=== PATIENT | male | born 1950 | race Caucasian/White ===

== ENCOUNTER → 2017-06-13 13:46 | Outpatient (CLI) | payer MEDICARE, OTHER, SELFPAY ==
[2017-06-13 16:33] LABS: Free T3 2.7 pg/mL (2.18-3.98); T4 Free Direct 1.22 ng/dL (0.76-1.46); Thyroid Stim Hormone (TSH) 4.68 uIU/mL (0.358-3.74)
== END ==
PROVIDERS: Family Provider Family Medicine; PCP Family Medicine; Visit Provider Nurse Practitioner
DX: E05.90 Thyrotoxicosis, unspecified without thyrotoxic crisis or storm (principal)
CPT/HCPCS: 84439; 84443; 84481

== ENCOUNTER → 2017-09-06 09:36 | Outpatient (CLI) | payer MEDICARE, OTHER, SELFPAY ==
[2017-09-06 12:57] LABS: Free T3 2.6 pg/mL (2.18-3.98); T4 Free Direct 1.18 ng/dL (0.76-1.46); Thyroid Stim Hormone (TSH) 4.63 uIU/mL (0.358-3.74)
== END ==
PROVIDERS: Family Provider Family Medicine; PCP Family Medicine; Visit Provider Nurse Practitioner
DX: E03.9 Hypothyroidism, unspecified (principal)
CPT/HCPCS: 36415; 84439; 84443; 84481

== ENCOUNTER → 2018-01-24 09:14 | Outpatient (CLI) | payer MEDICARE, OTHER, SELFPAY ==
[2018-01-24 10:58] LABS: Free T3 2.3 pg/mL (2.18-3.98); T4 Free Direct 1.06 ng/dL (0.76-1.46)
== END ==
PROVIDERS: Family Provider Family Medicine; PCP Family Medicine; Referring Provider Nurse Practitioner; Visit Provider Nurse Practitioner
DX: E03.9 Hypothyroidism, unspecified (principal)
CPT/HCPCS: 36415; 84439; 84443; 84481

== ENCOUNTER → 2018-03-01 15:26 | Outpatient (CLI) | payer MEDICARE, OTHER, SELFPAY ==
[2018-03-01 13:58] VITALS: BMI 29.2
[2018-03-01 17:17] LABS: Free T3 2.6 pg/mL (2.18-3.98); T4 Free Direct 1.12 ng/dL (0.76-1.46)
--- OUTSIDE RECORDS SUMMARY | 2018-04-17 21:01 | XMS RPT_ITS ---
:1950 Author Organization [facility] Care Team Providers Name Role Phone Aneta Lau POSTMASTER-C Attending Unavailable Hoynes, Boaz Referring Unavailable Aneta Lau POSTMASTER-C Attending Unavailable Hoynes, Boaz Referring Unavailable Hoynes, Boaz Primary Care Unavailable Aneta Lau POSTMASTER-C Attending Unavailable Aneta Lau POSTMASTER-C Referring Unavailable [place]nes, Boaz Primary Care Unavailable Aneta Lau POSTMASTER-C Attending Unavailable Aneta Lau POSTMASTER-C Referring Unavailable [place]nes, Boaz Primary Care Unavailable Aneta Lau POSTMASTER-C Attending Unavailable Aneta Lau POSTMASTER-C Referring Unavailable [place]nes, Boaz Primary Care Unavailable Aneta Lau POSTMASTER-C Attending Unavailable Aneta Lau POSTMASTER-C Referring Unavailable [place]nes, Boaz Primary Care Unavailable PROBLEMS PROBLEMS DATE TYPE CONDITION / CODE ATTENDING STATUS SOURCE 03/17/2018 Unknown E03.9 - Aneta Lau Active [place] Hypothyroidism, POSTMASTER-C Community unspecified / Hospital E03.9(ICD-10) Repository 03/01/2018 Unknown E07.9 - Disorder Aneta Lau Active [place] of thyroid, POSTMASTER-C Community unspecified / Hospital E07.9(ICD-10) Repository PROCEDURES PROCEDURES No Procedure Records FoundRESULTS RESULTS OFFICE VISIT REPORT Observed: 03/02/2018 Status: F Source: [place] 8:24 AM [facility] REPOSITORY [facility] [address] [place] [address] OFFICE VISIT Date of Service: 03/01/18 MR#: [id number] Acct: [id number] Patient: JAYASHREE RAMSEY Rep #: [id number] : 1950 Provider: Aneta Lau NP Age/Sex: 67/M [place] [facility] [place] Signed Intake Vital Signs03/01/18 Height 5 ft 7 in 03/01/18 Weight: 186 lb 6 oz 03/01/18 Body Mass Index (BMI) 29.2 03/01/18 Blood Pressure 110/76 03/01/18 Blood Pressure Location Lt popliteal 03/01/18 Blood Pressure Position Sitting Intake Visit Reasons: Thyroid dysfunction Supervisor Properties Required: No Accompanied by: Family / Other Allergies No Known Allergies Allergy (Unverified 03/01/18 13:54) Medications amlodipine 5 mg tablet 5 mg PO QDAY 04/11/17 [History Confirmed 03/01/18] atorvastatin 10 mg tablet 10 mg PO QDAY 04/11/17 [History Confirmed 03/01/18] ascorbic acid (vitamin C) 1,000 mg tablet 1 g PO QDAY tab 04/19/17 [History Confirmed 03/01/18] calcium carbonate 500 mg calcium (1,250 mg) chewable tablet 500 mg PO QDAY tab 04/19/17 [History Confirmed 03/01/18] cholecalciferol (vitamin D3) 1,000 unit capsule 1,000 unit PO QDAY cap 04/19/17 [History Confirmed 03/01/18] ferrous sulfate 325 mg (65 mg iron) tablet PO 04/19/17 [History Confirmed 03/01/18] magnesium 30 mg tablet 30 mg PO QDAY 04/19/17 [History Confirmed 03/01/18] mecobalamin (vitamin B12) 5,000 mcg disintegrating tablet mcg PO 04/19/17 [History Confirmed 03/01/18] multivitamin capsule 1 cap PO QDAY 04/19/17 [History Confirmed 03/01/18] levothyroxine 50 mcg tablet See Rx Instructions PO .COMPLEX #36 tab 03/01/18 [Rx Confirmed 03/01/18] PFSH Medical History Graves disease (Acute) H/O radioactive iodine thyroid ablation (Acute) High cholesterol (Acute) HTN (hypertension) (Chronic) Surgical History H/O hernia repair (Acute) History of knee replacement, total (Acute) Family History Mother Diabetes Father Cancer Social History Smoking Status: Current every day smoker second hand exposure: Yes alcohol intake: current alcohol intake frequency: a few times a month Alcohol type: beer substance use type: does not use HPI HPI Details: JAYASHREE MERRITTHANCE, is a 67 M who presents to the office today for Details: JAYASHREE RAMSEY, is a 66 M who presents to the office today for follow up of hypothyroidism. Hx of GORMAN treatment in 2017 for hyperthyroidism. Has continued on levothyroxine 50mcg daily. He ran out of his medication for about 1 week or so. He did make up mixed doses but was concerned and ask to be seen. Severity, modifying factors, context, and associated signs and symptoms are as follows: Thyroid pain: No Energy: Reduced Sleep: awakened refreshed Temp: No intolerance GI: Normal bowel Weight: Flucuates Eyes: No change in vision, protruding Memory: unchanged Diaphoresis: Not significant Skin: Dry Hair : Unchanged Neuro: No numbness, tingling or tremors Also known hx of HTN and hyperlipidemia. Exam Const General: comfortable, no acute distress Nutritional Appearance: well nourished, average body habitus Orientation: oriented x3 HENMT Head: normal to inspection, atraumatic Ears: hearing grossly normal bilaterally Mouth: oral mucosae normal, moist mucous membranes Neck Neck: normal visual inspection, full ROM Neck mass: No Chest Chest palpation AND inspection: deferred Resp Effort AND Inspection: able to speak in complete sentences, normal respiratory effort, symmetric chest movement Auscultation: Bilateral: Clear to Auscultation Cardio Rate: regular rate Rhythm: regular rhythm Heart Sounds: S1 normal, S2 normal GI Inspection: normal to inspection Auscultation: normal bowel sounds Palpation: soft, no guarding Musc Musculoskeletal: No muscle weakness Skin General: no rashes or lesions noted Wounds: no wounds Neuro Cranial Nerves: CN's II-XI intact bilaterally Extrem General: normal to inspection, full ROM, normal capillary refill Psych Appearance: well kempt Mood: congruent mood Affect: normal affect Thought Process: normal Thought Content: normal Judgment: judgment good ROS Const Constitutional: Positive for fatigue and change in appetite; no anorexia, body ache, chills, fever(s), frequent falls, decreased energy, malaise, night sweats, weakness, weight change, sleep problems, abnormal sleep pattern, other, headache(s), snoring or excessive sweating Eyes Eyes: No blurry vision, change in vision, double vision, discharge, dry eyes, bulging eyes, floaters, visual disturbances, eye pain, light sensitivity, spots in vision, tunnel vision or other ENT ENT: No abnormal hearing, ear pain, ear discharge, ear pressure, hearing loss, tinnitus, dizziness/vertigo, balance problems, nosebleed/epistaxis, nasal congestion, nasal obstruction, nose pain, sinus pressure, sinus pain, nasal discharge, post nasal drip, headache(s), facial pain, dental pain, dry mouth, bad breath, hoarseness, lip swelling, mouth lesions, mouth pain, sore throat, tongue swelling, throat swelling, difficulty swallowing, neck pain or other Resp Respiratory: No cough, change in phlegm color, chest congestion, excessive phlegm production, hemoptysis, pain on inspiration, shortness of breath, pain with cough, snoring, stridor, wheezing or other Cardio Cardiology: No chest pain at rest, chest pain with exertion, leg pain with exertion, shortness of breath, dyspnea on exertion, generalized swelling, irregular heart rhythm, lightheadedness, orthopnea, radiating jaw, neck or arm pain, fast heart rate, slow heart rate, palpitations, other or excessive sweating Gastro GI: Positive for diarrhea, constipation and loose stools; no abdominal pain, belching, bloating, change in bowel habits, change in stool character, coffee ground emesis, cramping, heartburn, difficulty swallowing, feeling full early, excessive flatus, incontinent of stools, Vomiting blood/hematemesis, blood in stool, Black,tarry stools, nausea/dyspepsia, pain with swallowing, vomiting or other Genitourinary Male: No difficulty urinating, burning urination, painful urination, urinary incontinence, urinary frequency, urinary urgency, urinary hesitancy, urinary retention, blood in urine, Frequent nighttime urination/ nocturia, post void dribbling, suprapubic fullness, side pain, sexual problems, genital lesions, genital itching, erectile dysfunction, penile discharge, difficulty with ejaculations, blood in semen, scrotal swelling, testicle lump, testicle pain or other Musc Musculoskeletal: No abnormal walking, joint pain, back pain, deformity, joint swelling, limited range of motion, loss of height, muscle cramps, muscle weakness, decreased muscle mass, body aches, neck pain, numbness, radiating pain into limb, stiffness, tingling or other Skin Skin: No acne, hair loss, change in hair, nail changes, boil, change in skin color, dry skin, redness, excessive hair growth, yellowing of the skin, lesions, itching, rash, skin pain, skin ulcer, sores, skin swelling, wounds or other Breast Breast: No other Neuro Neurology: No frequent falls, weakness, visual disturbances, abnormal hearing, headache(s), abnormal walking, numbness or tingling Psych Psychiatric: No abnormal sleep pattern, Positive for change in appetite Endo Endocrine: Positive for fatigue; no change in body appearance, cold intolerance, excessive sweating, flushing, heat intolerance, increased thirst/drinking, increased hunger, increased urination or other Aller/Imm Allergy/Immunologic: No lip swelling, tongue swelling, throat swelling, wheezing or itchy eyes Exam Musc Musculoskeletal: No muscle weakness Assessment AND Plan 1. Hypothyroidism (acquired) E03.9 Plan Labs in January note TSH remains elevated but T3 and T4 in normal range. No change in regimen today but will recheck labs Does take multivitamins, iron and calcium supplements. Is instructed to avoid taking near time of levothyroxine dosage. RTC 6 months, sooner if there is a change in condition. Labs to be checked in 3 months. Orders Orders: Medications Changed: Plan Detail Other Orders Orders: Coding Level of Care Code Off vis,est,level 3 Diagnoses Hypothyroidism (acquired) E03.9 03/02/18 0824 <Electronically signed by Aneta BARROW> Date Aneta BARROW Cosigner Signature: Date (if applicable) CC: FREE T3 Collected: 03/01/2018 Status: F Source: [place] 3:35 PM [facility] REPOSITORY TYPE CODE TESTS RESULT OUT OF RANGE REFERENCE UNITS LAB L501.78859 2.18-3.98 pg/mL Normal FREE T3 2.6 Performed By: #### [id number], L501.9520, L506.0400 #### [facility] [address] [place], [place], [address] THYROID STIM HORMONE Collected: 03/01/2018 Status: F Source: [place] (TSH) 3:35 PM [facility] REPOSITORY TYPE CODE TESTS RESULT OUT OF RANGE REFERENCE UNITS LAB L501.9520 0.358-3.74 uIU/mL High TSH 12.60 Performed By: #### L501.40830, L501.9520, L506.0400 #### [facility] [address] [place], [address] T4 FREE DIRECT Collected: 03/01/2018 Status: F Source: [place] 3:35 PM [facility] REPOSITORY TYPE CODE TESTS RESULT OUT OF RANGE REFERENCE UNITS LAB L506.0400 0.76-1.46 ng/dL Normal T4 FREE 1.12 DIRECT Performed By: #### L501.14018, L501.9520, L506.0400 #### [facility] [address] [place], [address] FREE T3 Collected: 01/24/2018 Status: F Source: [place] 9:20 AM [facility] REPOSITORY TYPE CODE TESTS RESULT OUT OF RANGE REFERENCE UNITS LAB L501.46312 2.18-3.98 pg/mL Normal FREE T3 2.3 Performed By: #### L501.82788, L501.9520, L506.0400 #### [facility] [address] [place], [address] THYROID STIM HORMONE Collected: 01/24/2018 Status: F Source: [place] (TSH) 9:20 AM [facility] REPOSITORY TYPE CODE TESTS RESULT OUT OF RANGE REFERENCE UNITS LAB L501.9520 0.358-3.74 uIU/mL High TSH 11.50 Performed By: #### L501.17886, L501.9520, L506.0400 #### [facility] [address] [place] [address]. [place], [address] T4 FREE DIRECT Collected: 01/24/2018 Status: F Source: [place] 9:20 AM [facility] REPOSITORY TYPE CODE TESTS RESULT OUT OF RANGE REFERENCE UNITS LAB L506.0400 0.76-1.46 ng/dL Normal T4 FREE 1.06 DIRECT Performed By: #### L501.73841, L501.9520, L506.0400 #### [facility] [address] [place] [address]. [place], [address] FREE T3 Collected: 09/06/2017 Status: F Source: [place] 9:51 AM [facility] REPOSITORY TYPE CODE TESTS RESULT OUT OF RANGE REFERENCE UNITS LAB L501.84049 2.18-3.98 pg/mL Normal FREE T3 2.6 Performed By: #### L501.93376, L501.9520, L506.0400 #### [facility] [address] [place] [address]. [place], [address] THYROID STIM HORMONE Collected: 09/06/2017 Status: F Source: [place] (TSH) 9:51 AM [facility] REPOSITORY TYPE CODE TESTS RESULT OUT OF RANGE REFERENCE UNITS LAB L501.9520 0.358-3.74 uIU/mL High TSH 4.63 Performed By: #### L501.47663, L501.9520, L506.0400 #### [facility] [address] [place], [address] T4 FREE DIRECT Collected: 09/06/2017 Status: F Source: [place] 9:51 AM [facility] REPOSITORY TYPE CODE TESTS RESULT OUT OF RANGE REFERENCE UNITS LAB L506.0400 0.76-1.46 ng/dL Normal T4 FREE 1.18 DIRECT Performed By: #### L501.94885, L501.9520, L506.0400 #### [facility] [address] [place], [address] WELCOME TO MEDICARE Observed: 08/30/2017 Status: UNK Source: [facility] VISIT 11:20 AM [facility] REPOSITORY History of Present Illness Past Medical, Surgical and Family History: reviewed and updated in chart. Hospitalizations: Patient has not been hospitalized previously. Medications and Supplements: Medications and supplements, including calcium and vitamins reviewed and updated in chart. Tobacco use: User Alcohol use: As noted in social history Illicit drug use: Non-User Current diet: well balanced diet, does consume adequate fluids and does consume caffeine. Exercise Frequency: regular and pickle ball 3x a week Depression Screening: Patient Health Questionnaire - 2 (PHQ-2):. During the past 2 weeks, the patient has not felt down, depressed or hopeless. During the past 2 weeks, the patient has not felt little interest or pleasure in doing things. Hearing Impairment: Patient has slight hearing impairment. Visual Acuity Corrected: both eyes 20/30, right eye 20/30, left eye 20/30. Activities of Daily Living: He does not have issues with activities of daily living (e.g. dressing, bathing, walking, shopping, housekeeping, etc.). Falls: JAYASHREE has not fallen in the last 6 months. His fall did not result in injury. Home safety risk factors: None. Advance directives:. Advance directives discussed, verbal or written information provided if indicated. Patient has living will. Patient has healthcare POA. Patient's End of Life Decisions: I agree to follow the patient's decisions. Initial Fall Risk Screening: JAYASHREE has not fallen in the last 6 months. Depression/Suicide Screening: During the past 2 weeks, the patient has not felt down, depressed or hopeless. During the past 2 weeks, the patient has not felt little interest or pleasure in doing things. He has no thoughts of harming self. He has not had thoughts of harming others. Single alcohol screening question: In the past year the patient has had 5 or more drinks (men) or 4 or more drinks (women)? 4 time(s). Single substance abuse screening question: In the past year the patient has used a recreational drug or used a prescription drug for non-medical reasons? 0 time(s). *Active Problems Problems Anemia (285.9) (D64.9) Benign essential hypertension (401.1) (I10) Elevated prostate specific antigen (PSA) (790.93) (R97.20) Hyperlipidemia (272.4) (E78.5) Hypothyroid (244.9) (E03.9) Need for prophylactic antibiotic (V58.62) (Z79.2) Tobacco dependence (305.1) (F17.200) Past Medical History Problems History of Abnormal PSA (795.89) (R97.20) History of Cellulitis of second finger of left hand History of DVT, lower extremity (453.40) (I82.409) June 2014, left LE History of Elevated PSA, less than 10 ng/ml (790.93) (R97.20) History of elevated prostate specific antigen (PSA) (V13.89) (Z87.898) History of elevated prostate specific antigen (PSA) (V13.89) (Z87.898) History of hyperglycemia (V12.29) (Z86.39) History of right flank pain (V13.89) (Z87.898) History of thyroiditis (V12.29) (Z86.39) History of Rising PSA remaining within normal limits Surgical History Problems History of Foot Surgery Left History of Foot Surgery Right History of Hernia Repair History of Knee Replacement bilateral Family History Mother Family history of Family history of diabetes mellitus (V18.0) (Z83.3) Family history of renal failure (V18.69) (Z84.1) Father Family history of Family history of malignant neoplasm of esophagus (V16.0) (Z80.0) Social History Problems Caffeine use Current every day smoker (305.1) (F17.200) Occasional alcohol use Health Management Health Maintenance Colonoscopy; every 10 years; Last 09Sep2009; Next Due: 10Sep2019; Active *Allergies Medication No Known Drug Allergies *Current Meds Anemia Vitamin B-12 ER 1500 MCG Oral Tablet Extended Release; TAKE 1 TABLET DAILY; Therapy: 25Mar2015 to Recorded Rx By: Yenni Carpenter; Dispense: 0 Days ; #: Sufficient Tablet Extended Release; Refill: 0;For: Anemia; DEV = N; Record Benign essential hypertension AmLODIPine Besylate 10 MG Oral Tablet; TAKE 1 TABLET DAILY; Therapy: 20May2015 to (Evaluate:06Jul2018) Requested for: 11Jul2017; Last Rx:11Jul2017 Ordered Rx By: [place]az Butt; Dispense: 90 Days ; #:90 Tablet; Refill: 3;For: Benign essential hypertension; DEV = N; Verified Transmission to [address]; Last Updated By: [employer]; 07/11/2017 5:12:20 PM Health Maintenance Calcium CAPS; Therapy: (Recorded:[id number]) to Recorded Dispense: 0 Days ; #: Sufficient Capsule; Refill: 0;For: Health Maintenance; DEV = N; Record; Last Updated By: Parvin Carroll; 10/26/2016 9:59:56 AM Levothyroxine Sodium 50 MCG Oral Tablet; Therapy: [id number] to Recorded Rx By: EMERALD; Dispense: 30 Days ; #:30 Tablet; Refill: 0;For: Health Maintenance; DEV = N; Record; Last Updated By: Parvin Carroll; 10/26/2016 9:59:56 AM Magnesium CAPS; Therapy: (Recorded:[id number]) to Recorded Dispense: 0 Days ; #: Sufficient Capsule; Refill: 0;For: Health Maintenance; DEV = N; Record; Last Updated By: Parvin Carroll; 10/26/2016 9:59:56 AM Multivitamins Oral Capsule; TAKE 1 CAPSULE DAILY; Therapy: 25Mar2015 to Recorded Rx By: Yenni Carpenter; Dispense: 0 Days ; #: Sufficient Capsule; Refill: 0;For: Health Maintenance; DEV = N; Record Vitamin D (Ergocalciferol) CAPS; Therapy: (Recorded:[id number]) to Recorded Dispense: 0 Days ; #: Sufficient Capsule; Refill: 0;For: Health Maintenance; DEV = N; Record; Last Updated By: Parvin Carroll; 10/26/2016 9:59:56 AM V-R Vitamin C TABS; Therapy: (Recorded:63Hbo4556) to Recorded Dispense: 0 Days ; #: Sufficient Tablet; Refill: 0;For: Health Maintenance; DEV = N; Record; Last Updated By: Parvin Carroll; 10/26/2016 9:59:56 AM Hyperlipidemia Atorvastatin Calcium 10 MG Oral Tablet; TAKE ONE TABLET BY MOUTH ONCE DAILY; Therapy: 22May2015 to (Evaluate:01Khu8391) Requested for: 11Jul2017; Last Rx:11Jul2017 Ordered Rx By: Boaz Butt; Dispense: 30 Days ; #:90 Tablet; Refill: 3;For: Hyperlipidemia; DEV = N; Verified Transmission to [address]; Last Updated By: [employer]; 07/11/2017 5:12:16 PM Unlinked Ferrous Sulfate 325 (65 Fe) MG Oral Tablet; Therapy: (Recorded:30Aug2017) to Recorded Dispense: 0 Days ; #: Sufficient TABS; Refill: 0; DEV = N; Record; Last Updated By: Alva Gaston; 08/30/2017 9:10:16 AM Immunizations 1 Influenza Temporarily Deferred: Pt refuses, Medical Deferral, As of: [id number], Defer for 8 Months Td/DT 2004 Patient Care Team Care Team MemberRoleSpecialtyOffice Number Boaz Butt [facility] Care ProviderFami [phone] Nestor Whitley MD, [facility] Aleksey APONTE, Rupert [phone] Vitals Vital Signs Recorded: 30Aug2017 09:10AM Bhlaridfthq75 F, Oral Heart Rate68 Kyecrypghgf82 Dkgipulu096, LUE, Sitting Mxktyhfpq22, LUE, Sitting Blood Pressure Cuff SizeAdult Height5 ft 7.25 in Ulwuwb033 lb 12.8 oz BMI Rvdeghsorc37.24 BSA Calculated1.89 O2 Bmsdhsjfkx15, RA *Diagnoses/Problems Assessed Welcome to Medicare preventive visit (V70.0) (Z00.00) Encounter for preventive health examination (V70.0) (Z00.00) Tobacco dependence (305.1) (F17.200) Provider Impressions Declines an EKG today, previous EKG done 09/07/12 is scanned in the chart Declines immunizations for now, declines smoking cessation program for now, declines screening for AAA given his h/o smoking Patient Discussion/Summary Work on healthy lifestyle, healthy eating such as a DASH diet (copy given in writing)or Mediterranean diet and regular exercise, ideally working up to 60 minutes most days of the week including cardiova scular exercises such as biking, walking, or swimming, and strength training 2-3 days a week. Start exercise slowly and increase as able. Referred to the [employer] [place] [employer]'s exercise manual and DVD Consider quitting smoking, information given Consider Immunizations as noted above, consider screening for an abdominal aneurysm and screening for lung cancer , discuss further with Dr Escalera at your follow up visit Schedule regular 6 month follow up with Dr Butt, due now Risk Factors Identified During Visit: Tobacco. Tobacco Cessation: Other: Patient is thinking about quitting, information printed. Influenza: the patient declines the influenza vaccination and Recommended in the fall. Pneumovax 23: Information given in writing. Prevnar 13: Information given in writing. Zostavax: Information given in writing. Prostate cancer screening: patient elects screening/current. Colorectal Cancer Screening: screening is current and Last done 09/09/09 , next due August 2019. Abdominal Aortic Aneurysm screening: the patient declines screening and Patient will consider. HIV screening: screening not indicated. Signatures Electronically signed by : MARIPOSA Kowalski; Aug 30 2017 11:20AM EST (Author) FREE T3 Collected: 06/13/2017 Status: F Source: [place] 1:51 PM [facility] REPOSITORY Order Comment: Order Date: 01/04/17 Order Info: 3024-7 - *T4 free Comments: Reason: TYPE CODE TESTS RESULT OUT OF RANGE REFERENCE UNITS LAB L501.15949 2.18-3.98 pg/mL Normal FREE T3 2.7 Performed By: #### L501.37889, L501.9520, L506.0400 #### [place] [facility] [address], [address] THYROID STIM HORMONE Collected: 06/13/2017 Status: F Source: [place] (TSH) 1:51 PM [facility] REPOSITORY Order Comment: Order Date: 01/04/17 Order Info: 3024-7 - *T4 free Comments: Reason: TYPE CODE TESTS RESULT OUT OF RANGE REFERENCE UNITS LAB L501.9520 0.358-3.74 uIU/mL High TSH 4.68 Performed By: #### L501.46457, L501.9520, L506.0400 #### [facility] [address] [place], [address] T4 FREE DIRECT Collected: 06/13/2017 Status: F Source: [place] 1:51 PM [facility] REPOSITORY Order Comment: Order Date: 01/04/17 Order Info: 3024-7 - *T4 free Comments: Reason: TYPE CODE TESTS RESULT OUT OF RANGE REFERENCE UNITS LAB L506.0400 0.76-1.46 ng/dL Normal T4 FREE 1.22 DIRECT Performed By: #### L501.42418, L501.9520, L506.0400 #### [place] [facility] [address] [place], [address] OFFICE VISIT REPORT Observed: 04/24/2017 Status: F Source: [place] 6:47 PM [facility] REPOSITORY [facility] [address] [place] [address] OFFICE VISIT Date of Service: 04/19/17 MR#: [id number] Acct: [id number] Patient: JAYASHREE RAMSEY Rep #: [id number] : 1950 Provider: Aneta Lau NP Age/Sex: 66/M [place] [facility] Signed Intake Vital Signs04/19/17 Height 5 ft 7 in 04/19/17 Weight: 180 lb 4 oz 04/19/17 Body Mass Index (BMI) 28.2 04/19/17 Blood Pressure 140/83 04/19/17 Blood Pressure Location Lt popliteal 04/19/17 Blood Pressure Position Sitting Intake Visit Reasons: Thyroid dysfunction Supervisor Properties Required: No Accompanied by: Self Is patient in pain?: No Allergies No Known Allergies Allergy (Unverified 04/19/17 14:39) Medications amlodipine 5 mg tablet 5 mg PO QDAY 04/11/17 [History Confirmed 04/19/17] atorvastatin 10 mg tablet 10 mg PO QDAY 04/11/17 [History Confirmed 04/19/17] levothyroxine 50 mcg capsule 50 mcg PO QDAY cap 04/11/17 [History Confirmed 04/19/17] ascorbic acid (vitamin C) 1,000 mg tablet 1 g PO QDAY tab 04/19/17 [History Confirmed 04/19/17] calcium carbonate 500 mg calcium (1,250 mg) chewable tablet 500 mg PO QDAY tab 04/19/17 [History Confirmed 04/19/17] cholecalciferol (vitamin D3) 1,000 unit capsule 1,000 unit PO QDAY cap 04/19/17 [History Confirmed 04/19/17] ferrous sulfate 325 mg (65 mg iron) tablet PO 04/19/17 [History Confirmed 04/19/17] magnesium 30 mg tablet 30 mg PO QDAY 04/19/17 [History Confirmed 04/19/17] mecobalamin (vitamin B12) 5,000 mcg disintegrating tablet mcg PO 04/19/17 [History Confirmed 04/19/17] multivitamin capsule 1 cap PO QDAY 04/19/17 [History Confirmed 04/19/17] [facility] Medical History Graves disease (Acute) High cholesterol (Acute) HTN (hypertension) (Chronic) Surgical History H/O hernia repair (Acute) H/O radioactive iodine thyroid ablation (Acute) History of knee replacement, total (Acute) Family History Mother Diabetes Father Cancer Social History Smoking Status: Current every day smoker second hand exposure: Yes alcohol intake: current alcohol intake frequency: a few times a month Alcohol type: beer substance use type: does not use HPI Thyroid dysfunction: Details: JAYASHREE RAMSEY, is a 66 M who presents to the office today for follow up of hypothyroidism. Hx of GORMAN treatment in 2017 for hyperthyroidism. Has continued on levothyroxine 50mcg daily. He ran out of his medication for about 1 week or so. He did make up mixed doses but was concerned and ask to be seen. Severity, modifying factors, context, and associated signs and symptoms are as follows: Thyroid pain: No Energy: Reduced Sleep: awakened refreshed Temp: No intolerance GI: Normal bowel Weight: Flucuates Eyes: No change in vision Memory: unchanged Diaphoresis: Not significant Skin: Dry Hair : Unchanged Neuro: No numbness, tingling or tremors Also known hx of HTN and hyperlipidemia. ROS Const Constitutional: Positive for fatigue and change in appetite; no anorexia, body ache, chills, fever(s), frequent falls, decreased energy, malaise, night sweats, weakness, weight change, sleep problems, abnormal sleep pattern, other, headache(s), snoring or excessive sweating Eyes Eyes: Positive for blurry vision and double vision; no change in vision, discharge, dry eyes, bulging eyes, floaters, visual disturbances, eye pain, light sensitivity, spots in vision, tunnel vision or other ENT ENT: No abnormal hearing, ear pain, ear discharge, ear pressure, hearing loss, tinnitus, dizziness/vertigo, balance problems, nosebleed/epistaxis, nasal congestion, nasal obstruction, nose pain, sinus pressure, sinus pain, nasal discharge, post nasal drip, headache(s), facial pain, dental pain, dry mouth, bad breath, hoarseness, lip swelling, mouth lesions, mouth pain, sore throat, tongue swelling, throat swelling, other, difficulty swallowing or neck pain Resp Respiratory: No cough, change in phlegm color, chest congestion, excessive phlegm production, hemoptysis, pain on inspiration, shortness of breath, pain with cough, snoring, stridor, wheezing or other Cardio Cardiology: Positive for lightheadedness; no chest pain at rest, chest pain with exertion, leg pain with exertion, excessive sweating, shortness of breath, dyspnea on exertion, generalized swelling, irregular heart rhythm, orthopnea, radiating jaw, neck or arm pain, fast heart rate, slow heart rate, palpitations or other Gastro GI: Positive for constipation; no abdominal pain, belching, bloating, change in bowel habits, change in stool character, coffee ground emesis, cramping, diarrhea, heartburn, difficulty swallowing, feeling full early, excessive flatus, incontinent of stools, Vomiting blood/hematemesis, blood in stool, loose stools, Black,tarry stools, nausea/dyspepsia, pain with swallowing, vomiting or other Genitourinary Male: No difficulty urinating, burning urination, painful urination, urinary incontinence, urinary frequency, urinary urgency, urinary hesitancy, urinary retention, blood in urine, Frequent nighttime urination/ nocturia, post void dribbling, suprapubic fullness, side pain, sexual problems, genital lesions, genital itching, erectile dysfunction, penile discharge, difficulty with ejaculations, blood in semen, scrotal swelling, testicle lump, testicle pain or other Musc Musculoskeletal: No abnormal walking, joint pain, back pain, deformity, joint swelling, limited range of motion, loss of height, muscle cramps, muscle weakness, decreased muscle mass, body aches, neck pain, numbness, radiating pain into limb, stiffness, tingling or other Neuro Neurology: No frequent falls, weakness, visual disturbances, abnormal hearing, headache(s), abnormal walking, numbness or tingling Psych Psychiatric: No abnormal sleep pattern, Positive for change in appetite Endo Endocrine: Positive for fatigue; no other or excessive sweating Aller/Imm Allergy/Immunologic: No lip swelling, tongue swelling, throat swelling or wheezing Exam Const General: comfortable, no acute distress Nutritional Appearance: well nourished, average body habitus Orientation: oriented x3 HENWA Head: normal to inspection, atraumatic Ears: hearing grossly normal bilaterally Mouth: oral mucosae normal, moist mucous membranes Teeth and gingiva: dentition normal Eyes Sclera: sclerae normal Cornea: corneas normal Pupils: PERRL Neck Neck: normal visual inspection, full ROM Neck mass: No Chest Chest palpation AND inspection: deferred Resp Effort AND Inspection: able to speak in complete sentences, normal respiratory effort, symmetric chest movement Auscultation: Bilateral: Clear to Auscultation Cardio Rate: regular rate Rhythm: regular rhythm Heart Sounds: S1 normal, S2 normal GI Inspection: normal to inspection Auscultation: normal bowel sounds Palpation: soft, no guarding Musc Musculoskeletal: No muscle weakness Skin General: no rashes or lesions noted Wounds: no wounds Neuro Cranial Nerves: CN's II-XI intact bilaterally Extrem General: normal to inspection, full ROM, normal capillary refill Psych Appearance: well kempt Mood: congruent mood Affect: normal affect Thought Process: normal Thought Content: normal Judgment: judgment good Assessment AND Plan Problems 1. Hypothyroidism (acquired) E03.9 Plan Labs note TSH elevated although T3 and T4 in range. Will recheck in 6 weeks to be sure the elevated TSH was from missing medication and not the need for additional medication. Orders Orders: Plan Detail Additional Comments Enc pt to avoid missing medication and running out of medication. Lab in 6 weeks RTC in 1 year. Coding Level of Care Code Off vis,est,level 3 Diagnoses Hypothyroidism (acquired) E03.9 Time Spent (min) 30 04/24/17 1847 <Electronically signed by Aneta BARROW> Date Aneta BARROW Cosigner Signature: Date (if applicable) CC: ALLERGIES ALLERGIES DATE TYPE / CODE NAME / CODE REACTION SEVERITY SOURCE 03/01/2018 Drug No Known Unknown [facility] Allergy/4160 Allergies/F00 Hospital 94239(SNOMED [id number](RXNOR Repository CT) M) ENCOUNTERS ENCOUNTERS ADMIT/DISCHARGE ACCOUNT ADMITTING ENCOUNTER LOCATION SOURCE NUMBER CLASS 03/01/2018 [id number] Ambulatory [place] 7 [facility] ing:LAB Repository 03/01/2018/ [id number] Ambulatory BMSBuilding:[place] [facility] [place] 01/24/2018 [id number] Ambulatory [place]is 6 [facility] ing:MTLAB Repository 09/06/2017 [id number] Ambulatory [place]is 6 [facility] ing:MTLAB Repository 06/13/2017 [id number] Ambulatory [place] 8 [facility] ing:MTLAB Repository 04/19/2017/ [id number] Amb[facility] BMS[facility] [facility] PAYERS PAYERS ENCOUNTER GUARANTOR PAYER SUBSCRIBER SOURCE 03/01/2018 JAYASHREE BLANCO Insurance:MEDICAL LACHANCEDOB: [facility] [id number] Number: Repository [id number]: 330 [id number] [phone] (HP) Date:[id number] [address] [address]NE: 03/01/2018 Secondary JAYASHREE A [place] Insurance:MEDICARE LACHANCEDOB: Community PART A [facility] [id number] Hospital Number: Repository [id number] Date:2018-03-01 03/01/2018 Tertiary NOT GIVENUNK [place] Insurance:SELF PAY [facility] Number: Effective Repository Date:2018-03-01 03/01/2018 JAYASHREE A Primary JAYASHREE A [place] [id number] Insurance:MEDICARE LACHANCEDOB: On License Of [facility] IRMA PART A [facility] [id number] Number[place] Repository [id number]: 330 [id number] [phone] (HP) Date:2018-01-31 03/01/2018 Secondary JAYASHREE A [place] Insurance:MEDICAL LACHANCEDOB: [facility] [id number] Hospital Number: Repository [id number] Date:[id number] [address]TG: 03/01/2018 Tertiary NOT GIVENUNK [place] Insurance:SELF PAY [facility] Number: Effective Repository Date:2018-03-01 01/24/2018 JAYASHREE A Primary JAYASHREE A [place] [id number] Insurance:MEDICARE LACHANCEDOB: On License Of [facility] IRMA PART A [facility] [id number] Number: Repository [id number]: 330 [id number] [phone] (HP) Date:2018-01-24 01/24/2018 Secondary JAYASHREE A [place] Insurance:MEDICAL LACHANCEDOB: [facility] [id number] Hospital Number: Repository [id number] Date:[id number] [address]AH: 01/24/2018 Tertiary NOT GIVENUNK [place] Insurance:SELF PAY [facility] Number: Effective Repository Date:2018-01-24 09/06/2017 JAYASHREE A Primary JAYASHREE A [place] [id number] Insurance:MEDICARE LACHANCEDOB: Community IRMA PART A [facility] [id number] Number: Repository [id number]: 330 [id number] [phone] () Date:2017-09-06 09/06/2017 Secondary JAYASHREE A [place] Insurance:MEDICAL LACHANCEDOB: [facility] [id number] Hospital Number: Repository [id number] Date:[id number] [address]PV: 09/06/2017 Tertiary NOT GIVENUNK [place] Insurance:SELF PAY [facility] Number: Effective Repository Date:2017-09-06 06/13/2017 JAYASHREE A Primary JAYASHREE A [place] [id number] Insurance:MEDICARE LACHANCEDOB: Community IRMA PART A [facility] [id number] Number: Repository [id number]: 330 [id number] [phone] () Date:2017-06-13 06/13/2017 Secondary JAYASHREE A [place] Insurance:MEDICAL LACHANCEDOB: [facility] [id number] Hospital Number: Repository [id number] Date:[id number] [address]DM: 06/13/2017 Tertiary NOT GIVENUNK [place] Insurance:SELF PAY [facility] Number: Effective Repository Date:2017-06-13 04/19/2017 JAYASHREE [id number] Primary JAYASHREE [place] IRMA Insurance:MEDICARE LACHANCEDOB: [place] PART A [facility] [id number] Hospital [id number]: 330) Number: Repository [phone] () [id number] Date:2017-04-11 04/19/2017 Secondary JAYASHREE [place] Insurance:MEDICAL LACHANCEDOB: [facility] [id number] Hospital Number: Repository [id number] Date:[id number], [place] [address]NS: 04/19/2017 Tertiary NOT GIVENFLAQUITA Abreu Insurance[facility]LF [facility]Y [facility] Effective Repository Date:2017-04-11
== END ==
PROVIDERS: Family Provider Family Medicine; PCP Family Medicine; Referring Provider Nurse Practitioner; Visit Provider Nurse Practitioner
DX: E03.9 Hypothyroidism, unspecified (principal)
CPT/HCPCS: 36415; 84439; 84443; 84481